=== PATIENT | female | born 1980 | race Caucasian/White ===

== ENCOUNTER 2021-02-08 11:18 | Outpatient (REF) | payer OTHER, SELFPAY | END 2021-02-08 11:19 | disposition home or self-care (01) | LOC: HO.LAB 11:18 | PROVIDERS: Visit Provider Nurse Practitioner Family | DX: Z13.89 Encounter for screening for other disorder (principal) | CPT/HCPCS: 87086 ==

== ENCOUNTER 2021-02-09 10:42 | Outpatient (REF) | payer OTHER, SELFPAY ==
[2021-02-09 14:09] LABS: Glucose Urine UA NEG (NEG); Leukocyte Esterase Urine NEG (NEG); Nitrite Urine NEG (NEG); Specific Gravity - Urine <= 1.005 (1.005-1.025); Urine Blood NEG (NEG); Urine Ketones NEG (NEG); Urine Protein NEG (NEG-TRACE)
[2021-02-09 14:14] LABS: Appearance Urine CLEAR; Color Urine YELLOW
== END 2021-02-09 10:43 | disposition home or self-care (01) ==
LOC: HO.HMGCLDS 10:42
PROVIDERS: PCP Hospitalist; Visit Provider Nurse Practitioner Family
DX: N39.0 Urinary tract infection, site not specified (principal)
CPT/HCPCS: 81003

== ENCOUNTER 2021-02-09 12:06 | Emergency (ER) | payer OTHER, SELFPAY ==
--- NOTE | ~2021-02-09 | CT_ITS ---
EXAMINATION: CT ABDOMEN AND PELVIS WITHOUT CONTRAST CLINICAL INFORMATION: Flank pain. History of kidney stones. COMPARISON: CT abdomen and pelvis 07/06/2020 TECHNIQUE: Multidetector volumetric imaging was performed from the superior aspect of the liver through the pubic symphysis. Sagittal and coronal reformatted images were obtained on the technologist's workstation. This CT examination was performed using dose optimization techniques as appropriate, variously including the following: *Automated exposure control *Adjustment of mA and/or kV according to patient size (this includes techniques or standardized protocols for targeted exams where dose is matched to indication/reason for exam; i.e. extremities or head) *Use of iterative reconstruction technique DLP: 707 mGy-cm FINDINGS: LUNG BASES: The heart size is normal. There is a right basilar atelectatic changes. LIVER, GALLBLADDER, AND BILIARY TREE: The liver is normal in size, shape, and attenuation. No focal hepatic lesion or biliary ductal dilatation is present. Gallbladder has been surgically removed PANCREAS: Unremarkable. SPLEEN: Unremarkable. ADRENAL GLANDS: Unremarkable. KIDNEYS AND URETERS: The kidneys are normal in size, shape, and attenuation. There are bilateral multiple radiopaque calculi without caliectasis or hydronephrosis.. BLADDER: Unremarkable. GASTROINTESTINAL TRACT: There is moderate stool and gas seen throughout the colon without significant distention. The small bowel loops are normal caliber. Appendix is normal caliber. The stomach is nondistended. ABDOMINAL WALL: There is a small umbilical hernia containing fat. LYMPH NODES: Normal. VASCULAR: Unremarkable. PELVIC VISCERA: Unremarkable. OSSEOUS STRUCTURES: No lytic or sclerotic process seen CT/CT abdomen pelvis wo con IMPRESSION: Lateral nephrolithiasis likely medullary sponge kidney without hydronephrosis. No change from 2015 Mild constipation.
[2021-02-09 12:11] VITALS: BP 139/88; PULSE 82; RESP 18; TEMP 36.7; O2SAT 96; BMI 34.0
[2021-02-09 12:30] LABS: MANUAL DIFF FLAG NO
[2021-02-09 12:32] LABS: Basophils Percent Auto 0.5 % (0-2); Eosinophils Absolute Auto 0.6 X10*3/uL (0.0-0.4); Eosinophils Percent Auto 7.8 % (0-4); Glucose Urine UA 100 MG/DL (NEG); Hematocrit 43.8 % (37-47); Hemoglobin 14.8 g/dl (12.0-16.0); Imm Gran Abs Auto 0.04 X10*3/uL (0.00-0.03); Imm Gran Pct Auto 0.5 % (0.0-0.4); Leukocyte Esterase Urine NEG (NEG); Lymphocytes Absolute Auto 2.3 X10*3/uL (1.2-4.9); Lymphocytes Percent Auto 31.1 % (20-40); Mean Corpuscular HGB Conc 33.8 g/dl (31.0-35.0); Mean Corpuscular Hemoglobin 30.6 pg (27.0-33.0); Mean Corpuscular Volume 90.7 fL (80-98); Mean Platelet Volume 9.5 fL (9.4-12.3); Monocytes Absolute Auto 0.4 X10*3/uL (0.1-1.2); Monocytes Percent Auto 5.7 % (2-11); Neutrophils Absolute Auto 4.1 X10*3/uL (2.0-8.3); Neutrophils Percent Auto 54.4 % (45-73); Platelet Count 352 X10*3/uL (160-400); Red Blood Count 4.83 X10*6/uL (4.20-5.50); Red Cell Distribution Width 12.4 % (11.0-16.0); Urine Blood NEG (NEG); Urine Ketones NEG (NEG); Urine Protein TRACE MG/DL (NEG-TRACE); White Blood Count 7.5 X10*3/uL (4.8-10.8)
[2021-02-09 12:34] LABS: Color Urine ORANGE
[2021-02-09 12:35] LABS: Appearance Urine HAZY
[2021-02-09 12:40] LABS: RBC Urine 0-2 /HPF (0); Squamous Epithelial Cell Urine TRACE /LPF; WBC Urine 0-2 /HPF (0-4)
[2021-02-09 12:55] LABS: Alanine Aminotransferase 24 U/L (0-31); Albumin Level 4.6 g/dL (3.5-5.0); Alkaline Phosphatase 84 U/L (39-117); Anion Gap 13 (12-20); Aspartate Amino Transferase 21 U/L (5-31); Bilirubin Total 0.8 mg/dL (0.0-1.0); Blood Urea Nitrogen 13 mg/dL (9-16); Calcium 9.5 mg/dL (8.4-10.2); Carbon Dioxide 25 mmol/L (22-29); Chloride 107 mmol/L (96-108); Creatinine Clr Calc Pharmacy 88.1; Estimated Glomerular Filt Rate > 60; Glucose Random 113 mg/dL (60-115); Potassium 3.9 mmol/L (3.3-5.1); Sodium 141 mmol/L (135-145); Total Protein 7.7 g/dL (6.5-8.0)
--- NOTE | 2021-02-09 13:57 | ED.ABDPAIN ---
HPI - Abdominal Pain General Chief Complaint: Abdominal Pain <DEBORAH Hudson - Last Filed: 02/10/21 12:27> Stated Complaint: flank pain, infection? <DEBORAH Hudson - Last Filed: 02/10/21 12:27> Time Seen by Provider: 02/09/21 13:46 <DEBORAH Hudson - Last Filed: 02/10/21 12:27> Source: patient, RN notes reviewed and old records reviewed <DEBORAH Hudson - Last Filed: 02/10/21 12:27> Mode of arrival: ambulatory <DEBORAH Hudson - Last Filed: 02/10/21 12:27> Limitations: no limitations <DEBORAH Hudson - Last Filed: 02/10/21 12:27> History of Present Illness HPI narrative: 40-year-old female here today for complaints of right flank pain. Patient was seen yesterday in urgent care for dysuria and pelvic pain. She was diagnosed with UTI and sent home on Cipro. Patient has a history of renal stones in the past. Seen by urologist in the past. Patient reports that she is drinking plenty fluids. Denies any dysuria today, however continues to have burning when passing urine. Denies any fever or chills. Complains of right flank pain. Denies any blood in her urine. <DEBORAH Hudson - Last Filed: 02/10/21 12:27> Related Data Home Medications: Previous Rx's Medication Instructions Recorded ciprofloxacin HCl 500 mg tablet 500 mg PO BID 7 Days #14 tab 02/08/21 ibuprofen 600 mg PO Q8H PRN #20 tab 02/09/21 tramadol 50 mg PO BEDTIME PRN #7 tab 02/09/21 <DEBORAH Hudson - Last Filed: 02/10/21 12:27> Allergies/Adverse Reactions: Allergies Allergy/AdvReac Type Severity Reaction Status Date / Time nitrofurantoin Allergy Palpitation Verified 02/09/21 12:15 [From Macrobid] s <DEBORAH Hudson - Last Filed: 02/10/21 12:27> Review of Systems Review of Systems Constitutional : No Weight loss, No Fever, No Chills, No Night Sweats, No Fatigue, No Malaise ENT/Mouth : No Hearing loss, No Ear Pain, No Nasal Congestion, No Sinus Pain, No Hoarseness, No sore throat, No Rhinorrhea, No Swallowing Difficulty Eyes: No Eye Pain, No Swelling, No Redness, No Foreign Body, No Discharge, No Vision Changes Cardiovascular : No Chest Pain, No SOB, No Dyspnea on Exertion, No Orthopnea, No Edema, No Palpitations Respiratory : No Cough, No Sputum, No Wheezing, No Smoke Exposure, No Dyspnea Gastrointestinal : Nausea, No Vomiting, No Diarrhea, No Constipation, abdominal Pain, No Hematochezia, No Melena Genitourinary : no irregular bleeding, Dysuria yesterday, No Urinary Frequency, No Hematuria, No Urinary Incontinence, No Urgency, Bilateral flank Pain, No Urinary Flow Changes, No Hesitancy Musculoskeletal : No joint pain, No Myalgias, No Joint Swelling Skin : No Skin Lesions, No rash Neuro : No Weakness, No Numbness, No Paresthesias, No Loss of Consciousness, No Dizziness, No Headache Psych : No Anxiety/Panic, No Depression, No SI/HI/AH/VH, No Social Issues, Heme/Lymph: No Bruising, No Bleeding,No Lymphadenopathy Endocrine : No Polyuria, No Polydipsia, No Temperature Intolerance <DEBORAH Hudson - Last Filed: 02/10/21 12:27> Yes all other systems are reviewed and are negative <DEBORAH Hudson - Last Filed: 02/10/21 12:27> Physical Exam Vital Signs: Vital Signs: Last Vital Signs Temp 98.0 F 02/09/21 12:11 Pulse 89 02/09/21 15:46 Resp 16 02/09/21 15:46 BP 120/71 02/09/21 15:46 Pulse Ox 99 02/09/21 15:46 Body Mass Index 34.0 <DEBORAH Hudson - Last Filed: 02/10/21 12:27> Vital Signs: Last Vital Signs Temp 98.0 F 02/09/21 12:11 Pulse 89 02/09/21 15:46 Resp 16 02/09/21 15:46 BP 120/71 02/09/21 15:46 Pulse Ox 99 02/09/21 15:46 Body Mass Index 34.0 <Tj Olmstead MD - Last Filed: 03/14/21 06:21> Const: General: healthy appearing, no acute distress and well developed <SHANT Hudson-BC - Last Filed: 02/10/21 12:27> Nutritional Appearance: well nourished <SHANT Hudson-BC - Last Filed: 02/10/21 12:27> Orientation/consciousness: patient oriented x3 <LAURA HudsonP-BC - Last Filed: 02/10/21 12:27> Neck: Neck: Yes normal visual inspection, Yes full ROM and Yes trachea midline <SHANT Hudson-BC - Last Filed: 02/10/21 12:27> Thyroid: Thyroid normal <SHANT Hudson-BC - Last Filed: 02/10/21 12:27> Resp: Auscultation: clear to auscultation bilaterally <SHANT Hudson-BC - Last Filed: 02/10/21 12:27> Cardio: Rate: regular rate <SHANT Hudson-BC - Last Filed: 02/10/21 12:27> Rhythm: regular rhythm <SHANT Hudson-BC - Last Filed: 02/10/21 12:27> GI: Inspection: Yes normal to inspection and No distended <SHANT Hudson-BC - Last Filed: 02/10/21 12:27> Palpation (GI): Tenderness to palpation present (GI) (Left flank) and No hepatosplenomegaly present <LAURA HudsonP-BC - Last Filed: 02/10/21 12:27> Auscultation: normal bowel sounds <LAURA HudsonP-BC - Last Filed: 02/10/21 12:27> Skin: General skin exam: elasticity normal, turgor normal and dry skin <LAURA HudsonP-BC - Last Filed: 02/10/21 12:27> Neuro: General: patient oriented x3 <JyotiDEBORAH Newby - Last Filed: 02/10/21 12:27> Course Course Course Narrative: 40-year-old female here today with burning on urination and right flank pain. Seen in urgent care yesterday and was treated for UTI. History of kidney stones in the past seen by Urology. Will do CT scan and order lab work, make sure she is not anemic, will check her kidney functions. Patient will be medicated with Toradol for pain and with Zofran for nausea. <DEBORAH Hudson - Last Filed: 02/10/21 12:27> I have reviewed the chart <Tj Olmstead MD - Last Filed: 03/14/21 06:21> Reevaluation(s) Reevaluation #1: Labs reviewed and CBC negative for leukocytosis and anemia. Kidney functions are normal. Urine negative for infection or blood. Awaiting CT scan results <DEBORAH Hudson - Last Filed: 02/10/21 12:27> Reevaluation #2: CT of the abdomen results are back. Discussed with patient. IMPRESSION: Lateral nephrolithiasis likely medullary sponge kidney without hydronephrosis. No change from 2015. Mild constipation. Patient's pain is better. Offered patient to give her something for constipation she declined. Will send her home with pain medication. Her kidney functions were normal she can take ibuprofen. Patient is agreeable to plan of care and verbalizes understanding of instructions. She was given the opportunity to ask questions and all questions answered. <DEBORAH Hudson - Last Filed: 02/10/21 12:27> MDM - Abdominal Pain Lab Data Result diagrams: : 02/09/21 12:24 02/09/21 12:24 <DEBORAH Hudson - Last Filed: 02/10/21 12:27> Labs: Lab Results 02/09/21 02/09/21 02/09/21 Range/Units 12:24 12:24 12:24 WBC 7.5 (4.8-10.8) X10*3/uL RBC 4.83 (4.20-5.50) X10*6/uL Hgb 14.8 (12.0-16.0) g/dl Hct 43.8 (37-47) % MCV 90.7 (80-98) fL MCH 30.6 (27.0-33.0) pg MCHC 33.8 (31.0-35.0) g/dl RDW 12.4 (11.0-16.0) % Plt Count 352 (160-400) X10*3/uL MPV 9.5 (9.4-12.3) fL Immature Gran % (Auto) 0.5 H (0.0-0.4) % Neut % (Auto) 54.4 (45-73) % Lymph % (Auto) 31.1 (20-40) % Ness % (Auto) 5.7 (2-11) % Eos % (Auto) 7.8 H (0-4) % Baso % (Auto) 0.5 (0-2) % Lymph # (Auto) 2.3 (1.2-4.9) X10*3/uL Ness # (Auto) 0.4 (0.1-1.2) X10*3/uL Eos # (Auto) 0.6 H (0.0-0.4) X10*3/uL Baso # (Auto) 0.0 (0.0-0.2) X10*3/uL Abs Immat Gran (auto) 0.04 H (0.00-0.03) X10*3/uL Absolute Neuts (auto) 4.1 (2.0-8.3) X10*3/uL Absolute Nucleated RBC 0.000 (0.0-0.012) X10*3/uL Nucleated RBC % (auto) 0.0 (0.0-0.2) /100WBC Hold Blue Top SEE NOTE Sodium 141 (135-145) mmol/L Potassium 3.9 (3.3-5.1) mmol/L Chloride 107 (96-108) mmol/L Carbon Dioxide 25 (22-29) mmol/L Anion Gap 13 (12-20) BUN 13 (9-16) mg/dL Creatinine 0.83 (0.5-1.4) mg/dL Estim Creat Clear Calc 88.1 Estimated GFR > 60 Random Glucose 113 (60-115) mg/dL Calcium 9.5 (8.4-10.2) mg/dL Total Bilirubin 0.8 (0.0-1.0) mg/dL AST 21 (5-31) U/L ALT 24 (0-31) U/L Alkaline Phosphatase 84 (39-117) U/L Total Protein 7.7 (6.5-8.0) g/dL Albumin 4.6 (3.5-5.0) g/dL Urine Color Urine Appearance Urine pH (5.0-8.0) Ur Specific [place] (1.005-1.025) Urine Protein (NEG-TRACE) MG/DL Urine Glucose (UA) (NEG) MG/DL Urine Ketones (NEG) MG/DL Urine Blood (NEG) Urine Nitrite Ur Leukocyte Esterase (NEG) Urine RBC (0) /HPF Urine WBC (0-4) /HPF Ur Squamous Epith Cells /LPF Urine Bacteria /LPF 02/09/21 Range/Units 12:24 WBC (4.8-10.8) X10*3/uL RBC (4.20-5.50) X10*6/uL Hgb (12.0-16.0) g/dl Hct (37-47) % MCV (80-98) fL MCH (27.0-33.0) pg MCHC (31.0-35.0) g/dl RDW (11.0-16.0) % Plt Count (160-400) X10*3/uL MPV (9.4-12.3) fL Immature Gran % (Auto) (0.0-0.4) % Neut % (Auto) (45-73) % Lymph % (Auto) (20-40) % Ness % (Auto) (2-11) % Eos % (Auto) (0-4) % Baso % (Auto) (0-2) % Lymph # (Auto) (1.2-4.9) X10*3/uL Ness # (Auto) (0.1-1.2) X10*3/uL Eos # (Auto) (0.0-0.4) X10*3/uL Baso # (Auto) (0.0-0.2) X10*3/uL Abs Immat Gran (auto) (0.00-0.03) X10*3/uL Absolute Neuts (auto) (2.0-8.3) X10*3/uL Absolute Nucleated RBC (0.0-0.012) X10*3/uL Nucleated RBC % (auto) (0.0-0.2) /100WBC Hold Blue Top Sodium (135-145) mmol/L Potassium (3.3-5.1) mmol/L Chloride (96-108) mmol/L Carbon Dioxide (22-29) mmol/L Anion Gap (12-20) BUN (9-16) mg/dL Creatinine (0.5-1.4) mg/dL Estim Creat Clear Calc Estimated GFR Random Glucose (60-115) mg/dL Calcium (8.4-10.2) mg/dL Total Bilirubin (0.0-1.0) mg/dL AST (5-31) U/L ALT (0-31) U/L Alkaline Phosphatase (39-117) U/L Total Protein (6.5-8.0) g/dL Albumin (3.5-5.0) g/dL Urine Color ORANGE Urine Appearance HAZY Urine pH 6.0 (5.0-8.0) Ur Specific [place] 1.010 (1.005-1.025) Urine Protein TRACE (NEG-TRACE) MG/DL Urine Glucose (UA) 100 H (NEG) MG/DL Urine Ketones NEG (NEG) MG/DL Urine Blood NEG (NEG) Urine Nitrite TNP Ur Leukocyte Esterase NEG (NEG) Urine RBC 0-2 (0) /HPF Urine WBC 0-2 (0-4) /HPF Ur Squamous Epith Cells TRACE /LPF Urine Bacteria NONE /LPF <LAURA HudsonP- - Last Filed: 02/10/21 12:27> Lab Results 02/09/21 02/09/21 02/09/21 Range/Units 12:24 12:24 12:24 WBC 7.5 (4.8-10.8) X10*3/uL RBC 4.83 (4.20-5.50) X10*6/uL Hgb 14.8 (12.0-16.0) g/dl Hct 43.8 (37-47) % MCV 90.7 (80-98) fL MCH 30.6 (27.0-33.0) pg MCHC 33.8 (31.0-35.0) g/dl RDW 12.4 (11.0-16.0) % Plt Count 352 (160-400) X10*3/uL MPV 9.5 (9.4-12.3) fL Immature Gran % (Auto) 0.5 H (0.0-0.4) % Neut % (Auto) 54.4 (45-73) % Lymph % (Auto) 31.1 (20-40) % Ness % (Auto) 5.7 (2-11) % Eos % (Auto) 7.8 H (0-4) % Baso % (Auto) 0.5 (0-2) % Lymph # (Auto) 2.3 (1.2-4.9) X10*3/uL Ness # (Auto) 0.4 (0.1-1.2) X10*3/uL Eos # (Auto) 0.6 H (0.0-0.4) X10*3/uL Baso # (Auto) 0.0 (0.0-0.2) X10*3/uL Abs Immat Gran (auto) 0.04 H (0.00-0.03) X10*3/uL Absolute Neuts (auto) 4.1 (2.0-8.3) X10*3/uL Absolute Nucleated RBC 0.000 (0.0-0.012) X10*3/uL Nucleated RBC % (auto) 0.0 (0.0-0.2) /100WBC Hold Blue Top SEE NOTE Sodium 141 (135-145) mmol/L Potassium 3.9 (3.3-5.1) mmol/L Chloride 107 (96-108) mmol/L Carbon Dioxide 25 (22-29) mmol/L Anion Gap 13 (12-20) BUN 13 (9-16) mg/dL Creatinine 0.83 (0.5-1.4) mg/dL Estim Creat Clear Calc 88.1 Estimated GFR > 60 Random Glucose 113 (60-115) mg/dL Calcium 9.5 (8.4-10.2) mg/dL Total Bilirubin 0.8 (0.0-1.0) mg/dL AST 21 (5-31) U/L ALT 24 (0-31) U/L Alkaline Phosphatase 84 (39-117) U/L Total Protein 7.7 (6.5-8.0) g/dL Albumin 4.6 (3.5-5.0) g/dL Urine Color Urine Appearance Urine pH (5.0-8.0) Ur Specific [place] (1.005-1.025) Urine Protein (NEG-TRACE) MG/DL Urine Glucose (UA) (NEG) MG/DL Urine Ketones (NEG) MG/DL Urine Blood (NEG) Urine Nitrite Ur Leukocyte Esterase (NEG) Urine RBC (0) /HPF Urine WBC (0-4) /HPF Ur Squamous Epith Cells /LPF Urine Bacteria /LPF 02/09/21 Range/Units 12:24 WBC (4.8-10.8) X10*3/uL RBC (4.20-5.50) X10*6/uL Hgb (12.0-16.0) g/dl Hct (37-47) % MCV (80-98) fL MCH (27.0-33.0) pg MCHC (31.0-35.0) g/dl RDW (11.0-16.0) % Plt Count (160-400) X10*3/uL MPV (9.4-12.3) fL Immature Gran % (Auto) (0.0-0.4) % Neut % (Auto) (45-73) % Lymph % (Auto) (20-40) % Ness % (Auto) (2-11) % Eos % (Auto) (0-4) % Baso % (Auto) (0-2) % Lymph # (Auto) (1.2-4.9) X10*3/uL Ness # (Auto) (0.1-1.2) X10*3/uL Eos # (Auto) (0.0-0.4) X10*3/uL Baso # (Auto) (0.0-0.2) X10*3/uL Abs Immat Gran (auto) (0.00-0.03) X10*3/uL Absolute Neuts (auto) (2.0-8.3) X10*3/uL Absolute Nucleated RBC (0.0-0.012) X10*3/uL Nucleated RBC % (auto) (0.0-0.2) /100WBC Hold Blue Top Sodium (135-145) mmol/L Potassium (3.3-5.1) mmol/L Chloride (96-108) mmol/L Carbon Dioxide (22-29) mmol/L Anion Gap (12-20) BUN (9-16) mg/dL Creatinine (0.5-1.4) mg/dL Estim Creat Clear Calc Estimated GFR Random Glucose (60-115) mg/dL Calcium (8.4-10.2) mg/dL Total Bilirubin (0.0-1.0) mg/dL AST (5-31) U/L ALT (0-31) U/L Alkaline Phosphatase (39-117) U/L Total Protein (6.5-8.0) g/dL Albumin (3.5-5.0) g/dL Urine Color ORANGE Urine Appearance HAZY Urine pH 6.0 (5.0-8.0) Ur Specific [place] 1.010 (1.005-1.025) Urine Protein TRACE (NEG-TRACE) MG/DL Urine Glucose (UA) 100 H (NEG) MG/DL Urine Ketones NEG (NEG) MG/DL Urine Blood NEG (NEG) Urine Nitrite TNP Ur Leukocyte Esterase NEG (NEG) Urine RBC 0-2 (0) /HPF Urine WBC 0-2 (0-4) /HPF Ur Squamous Epith Cells TRACE /LPF Urine Bacteria NONE /LPF <Tj Olmstead MD - Last Filed: 03/14/21 06:21> Imaging Data CT scan - abdomen: Radiologist's impression: FINDINGS: LUNG BASES: The heart size is normal. There is a right basilar atelectatic changes. LIVER, GALLBLADDER, AND BILIARY TREE: The liver is normal in size, shape, and attenuation. No focal hepatic lesion or biliary ductal dilatation is present. Gallbladder has been surgically removed PANCREAS: Unremarkable. SPLEEN: Unremarkable. ADRENAL GLANDS: Unremarkable. KIDNEYS AND URETERS: The kidneys are normal in size, shape, and attenuation. There are bilateral multiple radiopaque calculi without caliectasis or hydronephrosis.. BLADDER: Unremarkable. GASTROINTESTINAL TRACT: There is moderate stool and gas seen throughout the colon without significant distention. The small bowel loops are normal caliber. Appendix is normal caliber. The stomach is nondistended. ABDOMINAL WALL: There is a small umbilical hernia containing fat. LYMPH NODES: Normal. VASCULAR: Unremarkable. PELVIC VISCERA: Unremarkable. OSSEOUS STRUCTURES: No lytic or sclerotic process seen CT/CT abdomen pelvis wo con IMPRESSION: Lateral nephrolithiasis likely medullary sponge kidney without hydronephrosis. No change from 2015 Mild constipation. <Jyoti OliveraoDEBORAH - Last Filed: 02/10/21 12:27> Discharge Plan Discharge Clinical Impression: Calculus of kidney <Jyoti Oliveraarpit DEBORAH - Last Filed: 02/10/21 12:27> Patient Disposition: Home, Self-Care <Jyoti OliveraoDEBORAH - Last Filed: 02/10/21 12:27> Instructions: Constipation (ED), Flank Pain (ED) <Jyoti Oliveraarpit DEBORAH - Last Filed: 02/10/21 12:27> Additional Instructions: You were seen here today for abdominal pain and flank pain. Your blood work was negative. Your CT scan was normal. Images were compared with the images from 2015 and there was no change. Mild constipation seen on CT scan. Make sure you drink plenty fluids and increase fiber in your diet. You may take [id number] stool softeners to help you with your bowel movements. Please follow-up with your circulation sales representative and your urologist as well as your PCP in 2-3 days. <Jyoti Oliveraarpit DEBORAH - Last Filed: 02/10/21 12:27> Prescriptions: New ibuprofen 600 mg tablet 600 mg PO Q8H PRN (Reason: pain) Qty: 20 RF: 0 tramadol 50 mg tablet 50 mg PO BEDTIME PRN (Reason: pain) Qty: 7 RF: 0 No Action ciprofloxacin HCl 500 mg tablet 500 mg PO BID 7 Days Qty: 14 RF: 0 <Jyotieugene Vázquez SECTION LEADER AND MACHINE SETTER-GURPREET - Last Filed: 02/10/21 12:27> Stand Alone Forms: Work/School Release <Jyoti Oliveraarpit DEBORAH - Last Filed: 02/10/21 12:27> Interventions: ED Discharge Assessment Last Done: 02/09/21 17:22 <Jyotieugene Vázquez SECTION LEADER AND MACHINE SETTER-GUR[employer] - Last Filed: 02/10/21 12:27> Discharge Date/Time: 02/09/21 17:24 <LUIS Hudson - Last Filed: 02/10/21 12:27> REPLACED BY [facility] Past Medical History Medical History: Medical History (Updated 02/10/21 @ 00:01 by Gadiel Devine) Kidney stone <LUIS Hudson - Last Filed: 02/10/21 12:27> Social History Social History: Social History Use of substances other than those prescribed or required for medical reasons: No Advance Directives: No Advance Directives Information Provided: No Patient : No <LUIS Hudson - Last Filed: 02/10/21 12:27>
[2021-02-09] MEDS: 0.9 % Sodium Chloride 1,000 ML 999 ML IV (14:28)
[2021-02-09] MEDS: Ketorolac Tromethamine 15 MG/ML VIAL IVPUSH (14:28)
[2021-02-09] MEDS: ondansetron HCL 4 MG/2 ML VIAL IVPUSH (14:28)
[2021-02-09 15:46] VITALS: BP 120/71; PULSE 89; RESP 16; O2SAT 99
[2021-02-09] MEDS: Morphine Sulfate 4 MG/ML CARTRIDGE IVPUSH (16:10)
== END 2021-02-09 17:24 | disposition home or self-care (01) ==
PROVIDERS: Emergency Provider Emergency Medicine; PCP Hospitalist
DX: N20.0 Calculus of kidney (principal); K59.00 Constipation, unspecified; Z87.442 Personal history of urinary calculi
CPT/HCPCS: 36415; 74176; 80053; 81003; 85025; 96374; 96375; 99284; 99285; J1885; J2270; J2405

== ENCOUNTER 2022-06-03 13:06 | Emergency (ER) | payer OTHER, SELFPAY ==
--- NOTE | ~2022-06-03 | XR_ITS ---
EXAMINATION: XR CHEST CLINICAL INFORMATION: Productive cough COMPARISON: July 06, 2020 TECHNIQUE: Frontal view of the chest was obtained. FINDINGS: There is a region of parenchymal disease seen within the right upper lobe consistent with pneumonia. No pneumothorax or pleural effusion. Heart normal size. No evidence of pulmonary edema. XR/XR chest 1V IMPRESSION: Right upper lobe disease consistent with pneumonia.
[2022-06-03 13:07] VITALS: BP 126/75; PULSE 93; RESP 16; TEMP 37.2; O2SAT 98; BMI 35.9
[2022-06-03 13:52] LABS: COVID-19 Test Negative (Negative); IDNOW Serial# 55D5AD1C
[2022-06-03 13:58] LABS: IDNOW Serial# 08D9AD1C; Influenza A Negative (Negative); Influenza B2 Negative (Negative)
[2022-06-03 13:58] LABS: Strep A Nucleic Acid Negative (Negative)
--- NOTE | 2022-06-03 14:04 | ED_ITS ---
HPI - URI/Sore Throat General Chief Complaint: Upper Respiratory Symptoms Stated Complaint: Sore throat/Earache/headache Time Seen by Provider: 06/03/22 13:24 Source: patient Mode of arrival: ambulatory Limitations: no limitations History of Present Illness HPI Narrative: Patient presents emergency department for evaluation of upper respiratory symptoms. She states 3 days ago she began with headache and fatigue, she then developed a sore throat, radiating into both of the ears, and since yesterday with a productive coughing green phlegm. States that she has been vaccinated for COVID-19. Denies any known sick contacts. Denies fevers, chills, dizziness, lightheadedness, vision changes, chest pain, shortness of breath, difficulty breathing, nausea, vomiting, abdominal pain, numbness or tingling of the extremities. Related Data Previous Rx's Medication Instructions Recorded ciprofloxacin HCl 500 mg tablet 500 mg PO BID 7 days #14 tabs 02/08/21 ibuprofen 600 mg tablet 600 mg PO Q8H PRN pain #20 tabs 02/09/21 tramadol 50 mg tablet 50 mg PO BEDTIME PRN pain #7 tabs 02/09/21 amoxicillin 875 mg-potassium 1 tab PO Q12H 7 days #14 tabs 06/03/22 clavulanate 125 mg tablet Allergies Allergy/AdvReac Type Severity Reaction Status Date / Time nitrofurantoin Allergy Palpitation Verified 02/09/21 12:15 [From [employer]] s Review of Systems Review of Systems: Constitutional: No fever. No chills. No weakness. Positive fatigue. ENT/ Mouth: Positive Ear Pain, positive Nasal Congestion, No Rhinorrhea, No Swallowing Difficulty Skin: No rash or itching. Cardiovascular: No chest pain. No palpitations. Respiratory: No shortness of breath. Positive cough. Positive sputum production. Gastrointestinal: No nausea. No vomiting. No diarrhea. No abdominal pain. Genitourinary: No burning micturition. No urinary frequency. Neurologic: No headache. No dizziness. No syncope. No numbness or tingling in the extremities. Musculoskeletal: No muscle pain. No back pain. No joint pain or stiffness. Yes all other systems are reviewed and are negative PMFSH Past Medical History Attestation statement: The following information was validated with the patient. Source: old records reviewed Medical History Kidney stone Social History Social History Advance Directives: No Advance Directives Information Provided: No Physical Exam Vital Signs: Vital Signs: Last Vital Signs Temp 99.0 F 06/03/22 13:07 Pulse 93 06/03/22 13:07 Resp 16 06/03/22 13:07 BP 126/75 06/03/22 13:07 Pulse Ox 98 06/03/22 13:07 O2 Del Method 06/03/22 13:07 BMI result Body Mass Index 35.9 Vital signs have been reviewed as normal and appeared to be correct. Blood pressure normal.? Heart rate normal.? Respiration rate normal. Temperature normal.? Oxygen saturation normal. Appearance: Alert.?Oriented to person, place and time. No acute distress.?Normal affect. Eyes: Pupils equal, round and reactive to light.? ENT: TM normal on the left, right is erythematous and bulging.. Pharynx with mild erythema, no tonsillar hypertrophy or exudate? Neck: Normal inspection.? Neck supple.??No cervical adenopathy CVS: Heart sounds normal. Normal heart rate and rhythm.? Pulses normal.?? Respiratory: No respiratory distress.? Lung sounds clear to auscultation bilaterally?? Abdomen: Soft and non-tender. Normoactive bowel sounds. Skin: Skin warm and dry.? Normal skin color.? ? Extremities: No lower extremity edema.? Neuro: Moves all extremities spontaneously. Sensation intact bilaterally. No motor deficits. Ambulates with normal steady gait. Course Course Course Narrative: Patient is a 42-year-old female presenting for evaluation of upper respiratory symptoms. COVID-19 testing negative. Influenza testing negative. Group a strep testing negative. Physical exam of right ear concerning for acute otitis media, with associated upper respiratory symptoms. Chest x-ray reveals right upper lobe pneumonia Well-appearing, nontoxic, afebrile, no tachycardia or tachypnea/hypoxia. Speaking clear full sentences, ambulatory with steady gait. Discussed conservative treatment including rest, hydration, Tylenol/ibuprofen as needed for fever and body aches, saline nasal spray, humidifier, [id number] cold medication, antibiotics for AOM, pneumonia. Advised to follow-up with primary care provider within 1 week, discussed reasons to return back to the emergency department. All questions were answered. Patient discharged home in stable condition. MDM - URI/Sore Throat Medical Records Attestation: I reviewed the patient's medical records. Lab Data Attestation: I reviewed the patient's lab results. Labs: Lab Results 06/03/22 06/03/22 06/03/22 Range/Units 13:18 13:18 13:20 COVID-19 (NOLBERTO) Negative (Negative) COVID-19 Clin Com See Note Influenza Type A (VANDANA) Negative (Negative) Influenza Type B (VANDANA) Negative (Negative) Influenza A & B Note See Note S. pyogenes GrpA VANDANA Cancelled 06/03/22 Range/Units 13:37 COVID-19 (NOLBERTO) (Negative) COVID-19 Clin Com Influenza Type A (VANDANA) (Negative) Influenza Type B (VANDANA) (Negative) Influenza A & B Note S. pyogenes GrpA VANDANA Negative Imaging Data Chest x-ray: Radiologist's impression: XR/XR chest 1V IMPRESSION: Right upper lobe disease consistent with pneumonia. Discharge Plan Discharge Clinical Impression: Acute otitis media, Community acquired pneumonia Patient Disposition: Home, Self-Care Instructions: Ear Infection (ED), Upper Respiratory Infection (ED), Pneumonia (ED) Additional Instructions: As we discussed, your COVID-19, influenza, and strep throat testing were all negative. You were found to have a right ear infection and pneumonia in your right upper lung, for which have been given a prescription for an antibiotic, please complet e this entire course. Be sure to rest, stay well hydrated drinking plenty of fluids. Tylenol/ibuprofen can be used as needed for fever/pain. Ndtp-udd-ivesbrc cold medications may be helpful as well for symptoms. Saline nasal spray, humidifier may be helpful for nasal congestion/ cough. You may return to the emergency department with any new or worsening symptoms or concerns. Follow-up with your primary care provider within 1 week. Prescriptions: New amoxicillin-pot clavulanate 875-125 mg tablet 1 tab PO Q12H 7 Days Qty: 14 0RF No Action ibuprofen 600 mg tablet 600 mg PO Q8H PRN (Reason: pain) Qty: 20 0RF tramadol 50 mg tablet 50 mg PO BEDTIME PRN (Reason: pain) Qty: 7 0RF ciprofloxacin HCl 500 mg tablet 500 mg PO BID 7 Days Qty: 14 0RF
== END 2022-06-03 14:42 | disposition home or self-care (01) ==
PROVIDERS: Nurse Practitioner Family; Emergency Provider Emergency Medicine
DX: H66.91 Otitis media, unspecified, right ear (principal); J18.9 Pneumonia, unspecified organism; Z20.822 Contact with and (suspected) exposure to COVID-19
CPT/HCPCS: 36415; 71045; 87502; 87635; 87651; 99283